=== PATIENT | male | born 1955 | race Native Hawaiian/Other Pacific Islander ===

== ENCOUNTER 2020-01-17 13:36 | Outpatient (CLI) | payer OTHER ==
[2020-01-17 14:22] LABS: POTASSIUM 4.4 mmol/L (3.6-5.2)
== END 2020-01-17 20:17 | disposition home or self-care (01) ==
LOC: LABW 13:36
PROVIDERS: Internal Medicine Cardiovascular Disease
DX: Z79.899 Other long term (current) drug therapy (principal); R06.02 Shortness of breath
CPT/HCPCS: 36415; 80048; 83880

== ENCOUNTER 2020-02-06 09:55 | Outpatient (CLI) | payer OTHER | END 2020-02-07 00:36 | disposition home or self-care (01) | LOC: US 09:55 | DX: R07.89 Other chest pain (principal); R09.89 Other specified symptoms and signs involving the circulatory and respiratory systems ==